=== PATIENT | male | born 1980 | race American Indian/Alaskan Native ===

== ENCOUNTER 2018-12-30 22:38 | Emergency (ER) | payer SELFPAY ==
[2018-12-31 00:38] VITALS: BP 148/98
== END 2018-12-31 01:45 | disposition left against medical advice (07) ==
LOC: ED 22:38
DX: K08.89 Other specified disorders of teeth and supporting structures (principal); Z53.21 Procedure and treatment not carried out due to patient leaving prior to being seen by health care provider